=== PATIENT | female | born 1945 | race Caucasian/White ===

== ENCOUNTER 2021-04-08 12:06 | Outpatient (CLI) | payer OTHER | END 2021-04-08 12:15 | disposition home or self-care (01) | LOC: RAD 12:06 | PROVIDERS: ATTEND General Practice | DX: M25.552 Pain in left hip (principal); M25.551 Pain in right hip; W18.2XXD Fall in (into) shower or empty bathtub, subsequent encounter ==

== ENCOUNTER 2022-01-20 09:34 | Outpatient (CLI) | payer OTHER | END 2022-01-20 09:44 | disposition home or self-care (01) | LOC: RAD 09:34 | PROVIDERS: ATTEND General Practice | DX: M25.552 Pain in left hip (principal); S72.21XA Displaced subtrochanteric fracture of right femur, initial encounter for closed fracture ==

== ENCOUNTER 2024-02-01 12:39 | Outpatient (CLI) | payer OTHER | END 2024-02-01 12:49 | disposition home or self-care (01) | LOC: MRI 12:39 | PROVIDERS: ATTEND Neuromusculoskeletal Medicine & OMM | DX: M50.20 Other cervical disc displacement, unspecified cervical region (principal); M50.30 Other cervical disc degeneration, unspecified cervical region; M51.26 Other intervertebral disc displacement, lumbar region; M51.36 Other intervertebral disc degeneration, lumbar region | CPT/HCPCS: 72141; 72148 ==

== ENCOUNTER 2024-04-16 11:20 | Outpatient (CLI) | payer OTHER | END 2024-04-16 11:28 | disposition home or self-care (01) | LOC: RAD 11:20 | PROVIDERS: ATTEND Internal Medicine | DX: R05.9 Cough, unspecified (principal) ==

== ENCOUNTER 2024-06-04 09:45 | Outpatient (CLI) | payer OTHER | END 2024-06-04 09:53 | disposition home or self-care (01) | LOC: MRI 09:45 | PROVIDERS: ATTEND Internal Medicine | DX: I63.9 Cerebral infarction, unspecified (principal) | CPT/HCPCS: 70551 ==